=== PATIENT | male | born 1955 | race Caucasian/White ===

== ENCOUNTER 2017-10-04 18:32 | Inpatient (IN) ==
[2017-10-04] MEDS ORDERED: ONDANSETRON 4 MG/2 ML VIAL IV STA (19:05)
[2017-10-04] MEDS ORDERED: MORPHINE 4 MG/1 ML VIAL IV STA (19:05)
[2017-10-04] MEDS ORDERED: DIPH/TET/ACEL PERT BOOSTER VACCINE 0.5 ML VIAL IM ONE (19:05)
[2017-10-04] MEDS ORDERED: SODIUM CHLORIDE 0.9% 500 ML IV STA (19:05)
[2017-10-04 20:14] LABS: INR 1.1; PT Patient Result 11.4 SECS
[2017-10-04 20:30] LABS: Basophils # 0.1 10*3/uL (0.0-0.2); Basophils % 0.8 % (0.0-0.8); Eosinophils # 0.1 10*3/uL (0.0-0.87); Eosinophils % 1.4 % (0.00-10.9); Hematocrit 44.7 VOL% (42.0-52.0); Hemoglobin 15.9 GM/DL (14.0-18.0); Immature Granulocytes % 0.4 %; Immature Granulocytes Absolute 0.03 #; Lymphocytes # 1.3 10*3/uL (1.4-4.0); Lymphocytes % 18.6 % (21.2-54.2); Mean Corpuscular HGB Conc 35.6 GM/DL (32-36); Mean Corpuscular Hemoglobin 38 PG (27-34); Mean Corpuscular Volume 106.4 FL (87-102); Mean Platelet Volume 10.1 FL (9.6-12.0); Monocytes # 0.4 10*3/uL (0.11-0.8); Monocytes % 6.2 % (1.7-12.7); Neutrophils # 5.2 10*3/uL (1.4-7.4); Neutrophils % 72.6 % (38.7-73.9); Platelet Count 108 T/CUMM (130-400); Red Cell Distribution Width 15.7 % (9.3-17.3); White Blood Count 7.1 T/CUMM (4-12)
[2017-10-04 20:38] LABS: Alanine Aminotransferase 28 U/L (16-61); Albumin 3.5 G/DL (3.4-5.0); Alkaline Phosphatase 95 U/L (45-117); Aspartate Amino Transferase 27 U/L (0-37); Blood Urea Nitrogen 11 MG/DL (7-18); Calcium 8.3 MG/DL (8.5-10.1); Glucose 89 MG/DL (74-106); Osmolality,Calculated 276.4 MOS/KG (273-304); Sodium 140 MMOL/L (136-145); Total Protein 7.2 G/DL (6.4-8.3)
[2017-10-04] MEDS ORDERED: ONDANSETRON 4 MG/2 ML VIAL IV PRN (22:10)
[2017-10-04] MEDS ORDERED: MAGNESIUM HYDROXIDE SUSP 30 ML UDCUP PO PRN (22:10)
[2017-10-04] MEDS ORDERED: ceFAZolin 1,000 MG in SYRINGE 1 EACH IV ONE (22:10)
[2017-10-04 22:44] LABS: Basophils # 0.1 10*3/uL (0.0-0.2); Basophils % 0.7 % (0.0-0.8); Eosinophils # 0.1 10*3/uL (0.0-0.87); Hematocrit 44.3 VOL% (42.0-52.0); Hemoglobin 15.8 GM/DL (14.0-18.0); Immature Granulocytes % 0.3 %; Immature Granulocytes Absolute 0.02 #; Lymphocytes # 1.4 10*3/uL (1.4-4.0); Lymphocytes % 21.2 % (21.2-54.2); Mean Corpuscular HGB Conc 35.7 GM/DL (32-36); Mean Corpuscular Hemoglobin 38 PG (27-34); Mean Corpuscular Volume 106.2 FL (87-102); Monocytes # 0.4 10*3/uL (0.11-0.8); Monocytes % 5.2 % (1.7-12.7); Neutrophils # 4.8 10*3/uL (1.4-7.4); Neutrophils % 71.6 % (38.7-73.9); Platelet Count 101 T/CUMM (130-400); Red Blood Count 4.17 MC/CUMM (3.8-5.5); Red Cell Distribution Width 15.7 % (9.3-17.3); White Blood Count 6.8 T/CUMM (4-12)
[2017-10-04 22:51] LABS: INR 1.1; PT Patient Result 11.7 SECS
[2017-10-04] MEDS: diphenhydrAMINE CAP 25 MG CAPSULE PO SCH (23:05)
[2017-10-04 23:10] LABS: Bilirubin,Total 0.7 MG/DL (0.2-1.0); Calcium 8.2 MG/DL (8.5-10.1); Osmolality,Calculated 273.7 MOS/KG (273-304); Total Protein 6.8 G/DL (6.4-8.3)
[2017-10-05] MEDS: MORPHINE 4 MG/1 ML VIAL IV PRN ×3 (01:37→13:15)
[2017-10-05] MEDS ORDERED: ALBUTEROL/IPRATROPIUM 3 ML NEB RESP TX PRN (06:56)
[2017-10-05] MEDS ORDERED: ceFAZolin 1,000 MG in SYRINGE 1 EACH IV ONE (07:00)
[2017-10-05 07:59] LABS: Risk Ratio 2.47; VLDL CHOLESTEROL 12.4 MG/DL
[2017-10-05] MEDS: diphenhydrAMINE CAP 25 MG CAPSULE PO SCH ×2 (08:40→20:19)
[2017-10-05] MEDS: ATENOLOL 25 MG TABLET PO SCH ×2 (08:40→20:19)
[2017-10-05] MEDS: NICOTINE 21 MG/24 HR PATCH TRANSDERM SCH (08:40)
[2017-10-05] MEDS ORDERED: methylPREDNISolone SOD SUC 125 MG/2 ML VIAL IV SCH (09:00)
[2017-10-05] MEDS ORDERED: ASPIRIN EC 325 MG TABLET PO SCH (09:00)
[2017-10-05] MEDS ORDERED: ATENOLOL PO SCH (09:00)
[2017-10-05] MEDS ORDERED: amLODIPine 5 MG TABLET PO SCH (09:00)
[2017-10-05] MEDS ORDERED: LORazepam 2 MG/1 ML VIAL IV PRN (13:03)
[2017-10-05] MEDS: THIAMINE 200 MG/2 ML VIAL IV SCH (13:15)
[2017-10-05] MEDS: MULTIVITAMIN (BEROCCA) TABLET PO SCH (13:15)
[2017-10-05] MEDS: CALCIUM CARBONATE CHEW 500 MG TABLET PO PRN (20:19)
[2017-10-06] MEDS: MORPHINE 4 MG/1 ML VIAL IV PRN
[2017-10-06] MEDS: CALCIUM CARBONATE CHEW 500 MG TABLET PO PRN
[2017-10-06 05:17] LABS: Albumin 3.6 G/DL (3.4-5.0); Bilirubin,Total 1.1 MG/DL (0.2-1.0); Calcium 9.9 MG/DL (8.5-10.1); Osmolality,Calculated 261.8 MOS/KG (273-304); Potassium 3.8 MMOL/L (3.5-5.1); Total Protein 8.5 G/DL (6.4-8.3)
[2017-10-06 06:09] LABS: Basophils # 0.1 10*3/uL (0.0-0.2); Basophils % 0.3 % (0.0-0.8); Eosinophils % 0.1 % (0.00-10.9); Hematocrit 51.3 VOL% (42.0-52.0); Hemoglobin 19.4 GM/DL (14.0-18.0); Immature Granulocytes % 0.5 %; Immature Granulocytes Absolute 0.11 #; Lymphocytes # 1.5 10*3/uL (1.4-4.0); Lymphocytes % 7.1 % (21.2-54.2); Mean Corpuscular HGB Conc 37.8 GM/DL (32-36); Mean Corpuscular Hemoglobin 38 PG (27-34); Mean Corpuscular Volume 100.8 FL (87-102); Mean Platelet Volume 10.5 FL (9.6-12.0); Monocytes # 1.4 10*3/uL (0.11-0.8); Monocytes % 6.6 % (1.7-12.7); NRBC # 0.02 10*3/uL; Neutrophils # 17.7 10*3/uL (1.4-7.4); Neutrophils % 85.4 % (38.7-73.9); Platelet Count 122 T/CUMM (130-400); Red Blood Count 5.09 MC/CUMM (3.8-5.5); Red Cell Distribution Width 14.5 % (9.3-17.3); White Blood Count 20.7 T/CUMM (4-12)
[2017-10-06 06:15] LABS: Hypochromasia Slight; Lymphocytes 10 % (20-55); Ovalocytes Slight; Platelet Estimate Decreased; Segmented Neutrophils 85 % (50-85); Total Cells Counted 100
[2017-10-06] MEDS ORDERED: ceFAZolin 1,000 MG VIAL ONE (08:12)
[2017-10-06] MEDS ORDERED: TRANEXAMIC ACID 1,000 MG/10 ML VIAL ONE (08:13)
[2017-10-06] MEDS ORDERED: ALBUTEROL/IPRATROPIUM 3 ML NEB RESP TX ONE ×2 (09:21→09:36)
[2017-10-06] MEDS ORDERED: PROPOFOL 200 MG/20 ML VIAL IV ONE (09:27)
[2017-10-06] MEDS ORDERED: PROPOFOL 500 MG/50 ML BOTTLE IV ONE (09:28)
[2017-10-06] MEDS ORDERED: ONDANSETRON 4 MG/2 ML VIAL ONE (09:28)
[2017-10-06] MEDS ORDERED: MIDAZOLAM 2 MG/2 ML VIAL ONE ×2 (09:28)
[2017-10-06] MEDS ORDERED: PHENYLEPHRINE 1 MG/10 ML SYRINGE IV ONE (09:28)
[2017-10-06] MEDS ORDERED: KETAMINE 500 MG/10 ML VIAL ONE (09:28)
[2017-10-06 09:30] LABS: Apearance,Urine CLEAR (Clear); Bilirubin,Urine Negative (Negative); Blood, Urine Negative (Negative); Glucose,Urine (UA) >=500 mg/dL (Negative); Ketones,Urine Negative (Negative); Mucus,Urine Occasional /LPF (Occasional); Nitrite,Urine Negative (Negative); Protein,Urine 100 MG/DL; RBC,Urine <1 /HPF (0-4); Urine Color Straw (Yellow); Urine Specific Gravity 1.005 (1.001-1.035); Urine Urobilinogen < 2.0 EU/DL (0.2-1.0); WBC,Urine 1 /HPF (0-6)
[2017-10-06] MEDS: diphenhydrAMINE CAP 25 MG CAPSULE PO SCH ×2 (11:49→20:38)
[2017-10-06] MEDS: ASPIRIN EC 81 MG TABLET PO SCH (11:49)
[2017-10-06] MEDS: ATENOLOL 25 MG TABLET PO SCH ×2 (11:49→20:38)
[2017-10-06] MEDS: MULTIVITAMIN (BEROCCA) TABLET PO SCH (11:49)
[2017-10-06] MEDS: NICOTINE 21 MG/24 HR PATCH TRANSDERM SCH (11:49)
[2017-10-06] MEDS: THIAMINE 200 MG/2 ML VIAL IV SCH (11:50)
[2017-10-07 04:46] LABS: Basophils % 0.3 % (0.0-0.8); Eosinophils # 0.2 10*3/uL (0.0-0.87); Eosinophils % 1.4 % (0.00-10.9); Hematocrit 47.6 VOL% (42.0-52.0); Immature Granulocytes % 0.3 %; Immature Granulocytes Absolute 0.04 #; Lymphocytes % 17.6 % (21.2-54.2); Mean Corpuscular HGB Conc 35.7 GM/DL (32-36); Mean Corpuscular Hemoglobin 37 PG (27-34); Mean Corpuscular Volume 104.6 FL (87-102); Mean Platelet Volume 10.9 FL (9.6-12.0); Neutrophils # 8.2 10*3/uL (1.4-7.4); Neutrophils % 71.4 % (38.7-73.9); Platelet Count 91 T/CUMM (130-400); Red Blood Count 4.55 MC/CUMM (3.8-5.5); Red Cell Distribution Width 14.7 % (9.3-17.3); White Blood Count 11.5 T/CUMM (4-12)
[2017-10-07 05:09] LABS: Albumin 2.8 G/DL (3.4-5.0); Bilirubin,Total 0.9 MG/DL (0.2-1.0); Calcium 9.2 MG/DL (8.5-10.1); Osmolality,Calculated 265.5 MOS/KG (273-304); Potassium 3.8 MMOL/L (3.5-5.1); Total Protein 6.9 G/DL (6.4-8.3)
[2017-10-07 05:25] LABS: Hypochromasia Slight
[2017-10-07 05:26] LABS: Platelet Estimate Decreased
[2017-10-07] MEDS: APIXABAN 2.5 MG TABLET PO SCH ×2 (10:12→20:36)
[2017-10-07] MEDS: ATENOLOL 25 MG TABLET PO SCH ×2 (10:12→20:37)
[2017-10-07] MEDS: ASPIRIN EC 81 MG TABLET PO SCH (10:12)
[2017-10-07] MEDS: MULTIVITAMIN (BEROCCA) TABLET PO SCH (10:12)
[2017-10-07] MEDS: diphenhydrAMINE CAP 25 MG CAPSULE PO SCH ×2 (10:13→20:36)
[2017-10-07] MEDS: THIAMINE 200 MG/2 ML VIAL IV SCH (10:14)
[2017-10-07] MEDS: NICOTINE 21 MG/24 HR PATCH TRANSDERM SCH (10:14)
[2017-10-08] MEDS: NICOTINE 21 MG/24 HR PATCH TRANSDERM SCH (09:38)
[2017-10-08] MEDS: ASPIRIN EC 81 MG TABLET PO SCH (09:40)
[2017-10-08] MEDS: MULTIVITAMIN (BEROCCA) TABLET PO SCH (09:40)
[2017-10-08] MEDS: APIXABAN 2.5 MG TABLET PO SCH (09:40)
[2017-10-08] MEDS: diphenhydrAMINE CAP 25 MG CAPSULE PO SCH (09:41)
[2017-10-08] MEDS: ATENOLOL 25 MG TABLET PO SCH (09:41)
[2017-10-08] MEDS: THIAMINE 200 MG/2 ML VIAL IV SCH (09:43)
[2017-10-08 11:40] VITALS: BP 92/54
== END 2017-10-08 14:55 | disposition home or self-care (01) | DRG 470 ==
LOC: N.ED 18:32 → N.EDINP 20:40 → N.3E 21:35
PROVIDERS: ADMIT Orthopaedic Surgery; ATTEND Orthopaedic Surgery